=== PATIENT | male | born 1960 | race Caucasian/White ===

== ENCOUNTER 2017-05-01 11:48 | Emergency (ER) | payer OTHER ==
[~2017-05-01] VITALS: Ht 180.3 cm; Wt 115.5 kg
[~2017-05-01 11:48] MED LIST: ASPI81TA82 PO; LISI-363 PO; LORA1TAB PO; LORTA5 PO; OMEP20TA39 PO
[2017-05-01 11:52] VITALS: BP 133/88; PULSE 126; RESP 24; TEMP 97.5; O2SAT 97
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
[2017-05-01] MEDS ORDERED: KETOROLAC TROMETHAMINE 60 MG/2 ML (IM) VIAL IM ONE (12:30)
--- NOTE | 2017-05-01 13:15 | RADRPT ---
EXAM DATE/TIME: 05/01/2017 12:14 [place] COMPARISON: No previous studies available for comparison. INDICATIONS : Left ankle pain after fall today. MEDICAL HISTORY : Previous distal tib-fib fracture. SURGICAL HISTORY : ORIF left tib-fib. ENCOUNTER: Initial ACUITY: 1 day PAIN SCORE: 9/10 LOCATION: Left Anterior ankle FINDINGS: 3 views of the left ankle demonstrate no acute fracture or dislocation. There has been prior fracture healing in the distal tibial diaphysis with cortical thickening and hypertrophic bone. This is assoc iated with mild varus angulation. There is also an old healed distal fibular fracture as well. Minera lization is present within the distal interosseous membrane. Ankle mortise is intact. There are osteo phytes at the tibiotalar joint. No soft tissue abnormality or radiopaque foreign body is seen. CONCLUSION: No acute left ankle abnormality is identified. 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 Danny Jarrell MD on May 01, 2017 at 13:09 Board Certified Radiologist. This report was verified electronically.
[2017-05-01] MEDS ORDERED: IBUP800T23 PO (13:19)
[2017-05-01] MEDS ORDERED: TRAM50TA PO (13:19)
== END 2017-05-01 13:46 | disposition home or self-care (01) ==
LOC: NEPK 11:48
DX: S93.402A Sprain of unspecified ligament of left ankle, initial encounter (principal); I10 Essential (primary) hypertension; K21.9 Gastro-esophageal reflux disease without esophagitis; Z95.2 Presence of prosthetic heart valve; F17.210 Nicotine dependence, cigarettes, uncomplicated; W17.2XXA Fall into hole, initial encounter; Y93.H2 Activity, gardening and landscaping; Y92.9 Unspecified place or not applicable; Y99.0 Civilian activity done for income or pay
CPT/HCPCS: 73610; 96372; 99284; E0113; J1885; L1906